=== PATIENT | male | born 1980 | race Caucasian/White ===

== ENCOUNTER 2018-04-28 21:43 | Emergency (ER) | payer OTHER ==
[~2018-04-28] VITALS: Ht 193 cm; Wt 102.7 kg
[~2018-04-28 21:43] MED LIST: ADDERALL20 MG PO; AMOX/K CLAV875 M1 PO; CHERATUSSIN OR; EPIPEN0.3 MG IM; MEDDOSEPAK PO; NAPROSYN500 MG PO; NEXIUM20 M1 PO; OMEPRAZOLE20 MG PO; SIMVASTATIN40 MG PO; TIZANIDINE4 MG PO
[2018-04-28] MEDS ORDERED: FLEXERIL PO (23:00)
[2018-04-28] MEDS ORDERED: LORTAB 1010 MG PO (23:00)
[2018-04-28 23:24] VITALS: BP 136/70
== END 2018-04-28 23:25 | disposition home or self-care (01) | DRG 552 ==
LOC: ED 21:43
DX: M47.9 Spondylosis, unspecified (principal); M54.41 Lumbago with sciatica, right side; X50.0XXA Overexertion from strenuous movement or load, initial encounter; Y93.89 Activity, other specified; Y92.89 Other specified places as the place of occurrence of the external cause

== ENCOUNTER 2019-06-27 03:07 | Emergency (ER) | payer BC ==
[~2019-06-27] VITALS: Ht 193 cm; Wt 90.0 kg
[~2019-06-27 03:07] MED LIST changes: +FLEXERIL PO; +LORTAB 1010 MG PO
[2019-06-27 03:46] LABS: HEMATOCRIT 50.8 % (39.0-50.0); HEMOGLOBIN 17.1 g/dl (14.0-18.0); IMMATURE GRANULOCYTES 0.5 % (0.0-5.0); MEAN CELL VOLUME 94.4 fL CALC (80.0-100.0); MEAN CORPUSCULAR HGB 31.8 pG CALC (26.0-32.0); MEAN CORPUSCULAR HGB CONC 33.7 g/L CALC (32.0-36.0); NEUT# 10.67 thou/uL (1.82-7.42); RED BLOOD COUNT 5.38 mill/uL (4.70-6.10); RED CELL DISTRI WIDTH 12.9 % (11.5-15.5)
[2019-06-27 04:03] LABS: D-DIMER 0.38 mg/L (0.19-0.60); INTERNATIONAL NORMALIZED RATIO 0.9 RATIO (0.7-1.3); PROTHROMBIN TIME 9.5 SECONDS (9.0-12.5)
[2019-06-27 04:10] LABS: ALBUMIN 4.4 g/dL (3.2-5.0); ALKALINE PHOSPHATASE 75 u/l (38-126); ANION GAP 13 (6-22 (CALC)); BILIRUBIN, TOTAL 0.5 mg/dL (0.0-1.4); BUN 9 mg/dL (9-20); BUN/CREATININE RATIO 13 (12-20 (CALC)); CARBON DIOXIDE 25 mmol/l (22-30); CHLORIDE 106 mmol/l (95-108); CREATININE 0.7 mg/dL (0.7-1.3); GFR > 60 ML/MIN (>=60 (CALC)); GFR FOR AFR.AMER. > 60 ML/MIN (>=60 (CALC)); SODIUM 139 mmol/l (137-146)
[2019-06-27 04:22] LABS: MYOGLOBIN 41 ng/mL (0 - 121)
[2019-06-27 04:24] LABS: SGOT/AST 61 u/l (17-59)
--- NOTE | 2019-06-27 04:32 | NUR ---
BREATHING TREATMENT GIVEN . BREATHING TECH. FOR GOOD DEPOSITION TO THE LUNGS.
[2019-06-27] MEDS ORDERED: DOXYCYC MONO100 M1 PO (04:54)
[2019-06-27] MEDS ORDERED: TORADOL PO (04:54)
[2019-06-27 05:08] VITALS: BP 115/66
== END 2019-06-27 05:10 | disposition home or self-care (01) | DRG 203 ==
LOC: ED 03:07
PROVIDERS: Family Medicine
DX: J20.9 Acute bronchitis, unspecified (principal); R07.89 Other chest pain; F17.210 Nicotine dependence, cigarettes, uncomplicated

== ENCOUNTER 2021-10-30 19:53 | Emergency (ER) | payer SELFPAY ==
[~2021-10-30] VITALS: Ht 193 cm; Wt 101.4 kg
[~2021-10-30 19:53] MED LIST changes: +DOXYCYC MONO100 M1 PO; +TORADOL PO
[2021-10-30] MEDS ORDERED: MEDDOSEPAK PO (21:37)
[2021-10-30] MEDS ORDERED: ULTRAM50 MG PO (21:37)
[2021-10-30] MEDS ORDERED: FLEXERIL5 M1 PO (21:37)
[2021-10-30 21:41] VITALS: BP 142/93
== END 2021-10-30 21:47 | disposition home or self-care (01) | DRG 552 ==
LOC: ED 19:53
DX: M51.16 Intervertebral disc disorders with radiculopathy, lumbar region (principal); F17.200 Nicotine dependence, unspecified, uncomplicated

== ENCOUNTER 2022-03-13 01:37 | Emergency (ER) | payer SELFPAY ==
[~2022-03-13] VITALS: Ht 193 cm; Wt 105.0 kg
[~2022-03-13 01:37] MED LIST changes: +FLEXERIL5 M1 PO; +ULTRAM50 MG PO
[2022-03-13 01:40] VITALS: BP 138/90
[2022-03-13 01:45] VITALS: BP 133/88
[2022-03-13 02:00] VITALS: BP 126/91
[2022-03-13] MEDS ORDERED: EPINEPHRIN0.3 MG/0.3 (02:00)
[2022-03-13] MEDS ORDERED: MEDDOSEPAK PO (02:06)
[2022-03-13] MEDS ORDERED: EPIPEN 2-P0.3 MG/0.3 SC (02:06)
[2022-03-13 02:15] VITALS: BP 137/84
[2022-03-13 02:24] VITALS: BP 137/84
== END 2022-03-13 02:30 | disposition home or self-care (01) | DRG 918 ==
LOC: ED 01:37
DX: T63.461A Toxic effect of venom of wasps, accidental (unintentional), initial encounter (principal); F17.200 Nicotine dependence, unspecified, uncomplicated; Y92.008 Other place in unspecified non-institutional (private) residence as the place of occurrence of the external cause

== ENCOUNTER 2022-03-28 03:33 | Emergency (ER) | payer OTHER ==
[~2022-03-28] VITALS: Ht 193 cm; Wt 102.0 kg
[~2022-03-28 03:33] MED LIST changes: +EPINEPHRIN0.3 MG/0.3; +EPIPEN 2-P0.3 MG/0.3 SC
[2022-03-28] MEDS ORDERED: VOLTAREN75 MG PO (06:09)
[2022-03-28] MEDS ORDERED: FLEXERIL5 M1 PO (06:09)
[2022-03-28 06:15] VITALS: BP 135/90
== END 2022-03-28 06:15 | disposition home or self-care (01) | DRG 552 ==
LOC: ED 03:33
DX: S16.1XXA Strain of muscle, fascia and tendon at neck level, initial encounter (principal); S40.011A Contusion of right shoulder, initial encounter; F17.200 Nicotine dependence, unspecified, uncomplicated; V49.40XA Driver injured in collision with unspecified motor vehicles in traffic accident, initial encounter

== ENCOUNTER 2022-07-08 21:04 | Emergency (ER) | payer OTHER ==
[~2022-07-08] VITALS: Ht 193 cm; Wt 102.3 kg
[~2022-07-08 21:04] MED LIST changes: +VOLTAREN75 MG PO
[2022-07-08 21:10] VITALS: BP 149/99
[2022-07-08 21:15] VITALS: BP 151/104
[2022-07-08 21:27] VITALS: BP 130/77
[2022-07-08 21:45] VITALS: BP 142/78
[2022-07-08 22:00] VITALS: BP 142/78
== END 2022-07-08 22:03 | DRG 605 ==
LOC: ED 21:04
DX: S60.212A Contusion of left wrist, initial encounter (principal); S60.211A Contusion of right wrist, initial encounter; S80.02XA Contusion of left knee, initial encounter; F17.200 Nicotine dependence, unspecified, uncomplicated; Y35.893A Legal intervention involving other specified means, suspect injured, initial encounter

== ENCOUNTER 2022-10-24 06:34 | Emergency (ER) | payer SELFPAY ==
[~2022-10-24] VITALS: Ht 193 cm; Wt 102.0 kg
[2022-10-24] MEDS ORDERED: LORTAB 5/3255 MG PO (08:29)
[2022-10-24 08:35] VITALS: BP 134/79
== END 2022-10-24 08:47 | disposition home or self-care (01) | DRG 563 ==
LOC: ED 06:34
PROC: 2W3KX1Z Immobilization of Left Finger using Splint (ICD-10-PCS; principal; 2022-10-24)
DX: S62.623A Displaced fracture of middle phalanx of left middle finger, initial encounter for closed fracture (principal); W01.0XXA Fall on same level from slipping, tripping and stumbling without subsequent striking against object, initial encounter; F17.210 Nicotine dependence, cigarettes, uncomplicated

== ENCOUNTER 2023-08-04 05:11 | Emergency (ER) | payer SELFPAY ==
[2023-08-04] VITALS (13 sets, daily range): BP systolic 104–146; BP diastolic 57–87
[~2023-08-04] VITALS: Ht 193 cm; Wt 100.0 kg
[~2023-08-04 05:11] MED LIST changes: +LORTAB 5/3255 MG PO
[2023-08-04 06:02] LABS: BASO% 0.1 % (0-3); HEMATOCRIT 54.7 % (39.0-50.0); HEMOGLOBIN 18.3 g/dl (14.0-18.0); IMMATURE GRANULOCYTES 0.5 % (0.0-5.0); LYMPH% 2.1 % (15-41); MEAN CELL VOLUME 97.9 fL CALC (80.0-100.0); MEAN CORPUSCULAR HGB 32.7 pG CALC (26.0-32.0); MEAN CORPUSCULAR HGB CONC 33.5 g/dL CAL (32.0-36.0); MONO% 1.8 % (2-13); NEUT# 16.11 thou/uL (1.82-7.42); NEUT% 95.5 % (42-76); RED BLOOD COUNT 5.59 mill/uL (4.70-6.10); RED CELL DISTRI WIDTH 12.3 % (11.5-15.5)
[2023-08-04 06:40] LABS: ALBUMIN 4.1 g/dL (3.2-5.0); BUN 15 mg/dL (9-20); LIPASE 411 u/l (23-300); TOTAL PROTEIN 7.5 g/dL (6.3-8.2)
[2023-08-04 06:45] LABS: ACT PARTIAL THROMBO TIME 30.5 SECONDS (20.0-32.5)
[2023-08-04 06:49] LABS: D-DIMER 35.2 mg/L (0.19-0.60)
[2023-08-04 06:50] LABS: ANION GAP 29 (6-22 (CALC)); BILIRUBIN, TOTAL 10.7 mg/dL (0.2-1.3); BUN/CREATININE RATIO 8 (12-20 (CALC)); CARBON DIOXIDE 13 mmol/l (22-30); CHLORIDE 92 mmol/l (95-108); GFR FOR AFR.AMER. 44 ML/MIN (>=60 (CALC)); GFR OTHER RACES 37 ML/MIN (>=60 (CALC)); INTERNATIONAL NORMALIZED RATIO 3.6 RATIO (0.7-1.3); PROTHROMBIN TIME 32.1 SECONDS (9.0-12.5); SODIUM 128 mmol/l (137-146)
[2023-08-04 06:51] LABS: ALKALINE PHOSPHATASE 132 u/l (38-126)
[2023-08-04 07:12] LABS: POTASSIUM 6.2 mmol/l (3.5-5.1)
[2023-08-04 07:13] LABS: SGOT/AST > 11250 u/l (17-59)
== END 2023-08-04 10:22 | disposition short-term general hospital (02) | DRG 313 ==
LOC: ED 05:11
PROVIDERS: Internal Medicine
DX: R07.9 Chest pain, unspecified (principal); K72.00 Acute and subacute hepatic failure without coma; E87.1 Hypo-osmolality and hyponatremia; N17.9 Acute kidney failure, unspecified; E87.5 Hyperkalemia; D69.6 Thrombocytopenia, unspecified; D72.829 Elevated white blood cell count, unspecified; F17.210 Nicotine dependence, cigarettes, uncomplicated
CPT/HCPCS: J2060